=== PATIENT | female | born 1945 | race Caucasian/White ===

== ENCOUNTER → 2016-11-11 | Outpatient (CLI) | payer MEDICARE ==
[~2016-11-11] MED LIST: ASPI-557 PO; BIOT1TAB16 PO; CYCL5TAB PO; LACT1CAP73 PO; MELO-273 PO; SIMV20TA6 PO
== END ==
LOC: WC.BC 12:37
DX: Z12.31 Encounter for screening mammogram for malignant neoplasm of breast (principal); N64.59 Other signs and symptoms in breast
CPT/HCPCS: 77063; G0202